=== PATIENT | male | born 2000 | race Caucasian/White ===

== ENCOUNTER 2022-05-31 04:05 | Emergency (ER) | payer BC ==
[~2022-05-31] VITALS: Ht 180.3 cm; Wt 108.9 kg
[2022-05-31] MEDS ORDERED: TAMIFLU75 MG PO (05:40)
== END 2022-05-31 05:50 | disposition home or self-care (01) ==
LOC: ED 04:05
DX: J10.1 Influenza due to other identified influenza virus with other respiratory manifestations (principal); Z88.1 Allergy status to other antibiotic agents; Z20.822 Contact with and (suspected) exposure to COVID-19
CPT/HCPCS: 71045; 87502; 99283-25; A9270; C9803; U0003

== ENCOUNTER 2025-04-03 19:30 | Emergency (ER) | payer BC, OTHER ==
[~2025-04-03] VITALS: Ht 180.3 cm; Wt 112.0 kg
[~2025-04-03 19:30] MED LIST: TAMIFLU75 MG PO
[2025-04-03 20:00] VITALS: BP 151/83
[2025-04-03 20:22] LABS: INFLUENZA B NAA NEGATIVE (NEGATIVE); RESPIRATORY SYNCYTIAL VIR NAA NEGATIVE (NEGATIVE)
== END 2025-04-03 20:00 | disposition left against medical advice (07) ==
LOC: ED 19:30
PROVIDERS: Family Medicine
DX: R51.9 Headache, unspecified (principal); R68.89 Other general symptoms and signs; Z53.21 Procedure and treatment not carried out due to patient leaving prior to being seen by health care provider
CPT/HCPCS: 87502; U0002